=== PATIENT | male | born 1950 | race Caucasian/White ===

== ENCOUNTER → 2018-04-07 | Outpatient (CLI) | payer MEDICARE, OTHER | END | disposition home or self-care (01) | LOC: CFH 11:58 | PROVIDERS: ATTEND Nurse Practitioner Family | DX: M25.561 Pain in right knee (principal) ==

== ENCOUNTER → 2018-05-13 | Outpatient (CLI) | payer MEDICARE, OTHER | END | disposition home or self-care (01) | LOC: RAD 10:14 | PROVIDERS: ATTEND Family Medicine | DX: M25.561 Pain in right knee (principal) ==

== ENCOUNTER 2021-02-15 15:24 | Outpatient (CLI) | payer MEDICARE, OTHER | END 2021-02-15 23:59 | disposition home or self-care (01) | LOC: CFH 15:24 | PROVIDERS: ATTEND Family Medicine | DX: M71.21 Synovial cyst of popliteal space [Baker], right knee (principal) ==